=== PATIENT | male | born 1965 | race Two or more races ===

== ENCOUNTER → 2022-10-11 10:00 | Outpatient (BNVA) | payer OTHER, SELFPAY | PROVIDERS: Visit Provider Physician Assistant | DX: M54.2 Cervicalgia (principal); M54.50 Low back pain, unspecified; S46.012A Strain of muscle(s) and tendon(s) of the rotator cuff of left shoulder, initial encounter; V63.0XXA Driver of heavy transport vehicle injured in collision with car, pick-up truck or van in nontraffic accident, initial encounter | CPT/HCPCS: 72100; 73030; 99204 ==

== ENCOUNTER → 2022-10-25 13:02 | Outpatient (BNVA) | payer OTHER, SELFPAY | PROVIDERS: Visit Provider Physician Assistant | DX: M54.2 Cervicalgia (principal); M25.511 Pain in right shoulder; M54.9 Dorsalgia, unspecified; T14.90XD Injury, unspecified, subsequent encounter; V63 Occupant of heavy transport vehicle injured in collision with car, pick-up truck or van | CPT/HCPCS: 99213 ==

== ENCOUNTER → 2022-11-08 12:53 | Outpatient (BNVA) | payer OTHER, SELFPAY | PROVIDERS: Visit Provider Physician Assistant | DX: S46.012D Strain of muscle(s) and tendon(s) of the rotator cuff of left shoulder, subsequent encounter (principal); V63 Occupant of heavy transport vehicle injured in collision with car, pick-up truck or van; M54.2 Cervicalgia; M54.50 Low back pain, unspecified | CPT/HCPCS: 99214 ==